=== PATIENT | female | born 1940 | race African-American/Black ===

== ENCOUNTER 2017-03-26 09:20 | Emergency (ER) | payer OTHER ==
[~2017-03-26] VITALS: Ht 180.3 cm; Wt 77.1 kg
[~2017-03-26 09:20] MED LIST: ANTIVERT25 MG PO; ARICEPT5 MG PO; CARDIZEM CD240 MG; CIPRO I.V.400 MG/201 IV; CIPRO500 MG PO; FLAGYL I.V500 MG/100 IV; FLAGYL500MG PO; GLUCOPHAGE XR500 MG; INTESTINEX1 CAP PO; MECLIZINE HCL25 MG PO; OSTERA TABLET1 EACH; PLAVIX75 MG PO; PREVACID30 MG PO; PRILOSEC20 MG; PROTONIX20 MG PO; PROTONIX40 MG PO; TARKA 1/2401 BOTTLE PO; ULTRACET PO
== END 2017-03-26 14:35 | disposition home or self-care (01) ==
LOC: ER 09:20
DX: M54.5 Low back pain (principal); M79.662 Pain in left lower leg

== ENCOUNTER 2017-08-12 17:08 | Emergency (ER) | payer OTHER ==
[~2017-08-12] VITALS: Ht 177.8 cm; Wt 77.1 kg
== END 2017-08-13 11:01 | disposition designated cancer center or children's hospital (05) ==
LOC: ER 17:08 → CPU-OBS 17:09 → ER 17:09
DX: I21.4 Non-ST elevation (NSTEMI) myocardial infarction (principal); I20.8 Other forms of angina pectoris; R07.89 Other chest pain

== ENCOUNTER 2017-12-02 09:33 | Emergency (ER) | payer OTHER ==
[~2017-12-02] VITALS: Ht 180.3 cm; Wt 98.9 kg
[2017-12-02] MEDS ORDERED: TOPROL XL25 M1 (09:42)
[2017-12-02] MEDS ORDERED: LIPITOR20 MG (09:42)
== END 2017-12-02 14:30 | disposition home or self-care (01) ==
LOC: ER 09:33
DX: M71.21 Synovial cyst of popliteal space [Baker], right knee (principal); M25.552 Pain in left hip; I87.2 Venous insufficiency (chronic) (peripheral)

== ENCOUNTER 2018-08-28 08:04 | Outpatient (CLI) | payer OTHER | END 2018-08-28 08:08 | disposition home or self-care (01) | LOC: RAD 08:04 → EDBD 08:04 → RAD 08:08 | DX: E78.89 Other lipoprotein metabolism disorders (principal); E55.9 Vitamin D deficiency, unspecified; E03.8 Other specified hypothyroidism; E66.8 Other obesity; M89.8X8 Other specified disorders of bone, other site; E11.51 Type 2 diabetes mellitus with diabetic peripheral angiopathy without gangrene; E11.9 Type 2 diabetes mellitus without complications; E11.42 Type 2 diabetes mellitus with diabetic polyneuropathy; G62.89 Other specified polyneuropathies; E11.65 Type 2 diabetes mellitus with hyperglycemia ==

== ENCOUNTER → 2018-08-28 | Outpatient (CLI) | payer OTHER ==
[~2018-08-28] MED LIST changes: +LIPITOR20 MG; +TOPROL XL25 M1
== END | disposition home or self-care (01) ==
LOC: LAB 09:02
DX: E03.8 Other specified hypothyroidism (principal); E78.89 Other lipoprotein metabolism disorders; E55.9 Vitamin D deficiency, unspecified; E66.8 Other obesity; M89.8X8 Other specified disorders of bone, other site; E11.51 Type 2 diabetes mellitus with diabetic peripheral angiopathy without gangrene; E11.9 Type 2 diabetes mellitus without complications; E11.42 Type 2 diabetes mellitus with diabetic polyneuropathy; G62.89 Other specified polyneuropathies; E11.65 Type 2 diabetes mellitus with hyperglycemia; Z79.4 Long term (current) use of insulin; M15.8 Other polyosteoarthritis; G30.9 Alzheimer's disease, unspecified; I49.8 Other specified cardiac arrhythmias; I10 Essential (primary) hypertension; I70.0 Atherosclerosis of aorta

== ENCOUNTER 2019-03-02 14:14 | Emergency (ER) | payer OTHER ==
[~2019-03-02] VITALS: Ht 180.3 cm; Wt 90.7 kg
== END 2019-03-02 16:07 | disposition home or self-care (01) ==
LOC: ER 14:14
DX: H66.92 Otitis media, unspecified, left ear (principal)

== ENCOUNTER 2019-04-25 10:33 | Outpatient (CLI) | payer OTHER | END 2019-04-25 11:12 | disposition home or self-care (01) | LOC: NUCLEAR 10:33 | DX: M89.8X0 Other specified disorders of bone, multiple sites (principal); E78.89 Other lipoprotein metabolism disorders; E55.9 Vitamin D deficiency, unspecified; E03.8 Other specified hypothyroidism; E66.8 Other obesity; E11.51 Type 2 diabetes mellitus with diabetic peripheral angiopathy without gangrene; E11.9 Type 2 diabetes mellitus without complications; E11.42 Type 2 diabetes mellitus with diabetic polyneuropathy; G62.89 Other specified polyneuropathies; E11.65 Type 2 diabetes mellitus with hyperglycemia; Z79.4 Long term (current) use of insulin ==

== ENCOUNTER 2019-04-25 11:36 | Outpatient (CLI) | payer OTHER | END 2019-04-25 11:48 | disposition home or self-care (01) | LOC: RAD 11:36 | DX: E78.89 Other lipoprotein metabolism disorders (principal); E55.9 Vitamin D deficiency, unspecified; E03.8 Other specified hypothyroidism; E66.8 Other obesity; M89.8X8 Other specified disorders of bone, other site; E11.51 Type 2 diabetes mellitus with diabetic peripheral angiopathy without gangrene; E11.42 Type 2 diabetes mellitus with diabetic polyneuropathy; G62.89 Other specified polyneuropathies; E11.65 Type 2 diabetes mellitus with hyperglycemia; Z79.4 Long term (current) use of insulin; M13.812 Other specified arthritis, left shoulder; M75.52 Bursitis of left shoulder ==

== ENCOUNTER → 2019-05-11 07:18 | Outpatient (CLI) | payer OTHER | END | disposition home or self-care (01) | LOC: LAB 07:18 | DX: E78.89 Other lipoprotein metabolism disorders (principal); E55.9 Vitamin D deficiency, unspecified; E03.8 Other specified hypothyroidism; E66.8 Other obesity; M89.8X8 Other specified disorders of bone, other site; E11.51 Type 2 diabetes mellitus with diabetic peripheral angiopathy without gangrene; E11.42 Type 2 diabetes mellitus with diabetic polyneuropathy; G62.89 Other specified polyneuropathies; E11.65 Type 2 diabetes mellitus with hyperglycemia; Z79.4 Long term (current) use of insulin; Z12.11 Encounter for screening for malignant neoplasm of colon; M15.8 Other polyosteoarthritis; G30.8 Other Alzheimer's disease; I49.8 Other specified cardiac arrhythmias; I10 Essential (primary) hypertension; I70.0 Atherosclerosis of aorta ==

== ENCOUNTER → 2020-02-28 10:31 | Outpatient (CLI) | payer OTHER | END | disposition home or self-care (01) | LOC: LAB 10:31 | PROVIDERS: ATTEND General Practice | DX: N39.0 Urinary tract infection, site not specified (principal) ==

== ENCOUNTER 2020-12-31 08:43 | Outpatient (CLI) | payer OTHER | END 2020-12-31 08:51 | disposition home or self-care (01) | LOC: RAD 08:43 | PROVIDERS: ATTEND Physical Medicine & Rehabilitation | DX: M17.0 Bilateral primary osteoarthritis of knee (principal) ==

== ENCOUNTER → 2021-02-25 | Emergency (ER) | payer OTHER ==
[~2021-02-25] VITALS: Ht 170.2 cm; Wt 113.4 kg
[~2021-02-25] MED LIST changes: +HYMOVIS24 MG/3 ML IU
== END | disposition designated cancer center or children's hospital (05) ==
LOC: ER 13:34
DX: I63.89 Other cerebral infarction (principal); Z20.822 Contact with and (suspected) exposure to COVID-19

== ENCOUNTER 2021-03-29 16:51 | Inpatient (IN) | payer OTHER ==
[~2021-03-29] VITALS: Ht 162.6 cm; Wt 124.7 kg
[2021-04-05] MEDS ORDERED: MEROPENEM1 GM IV (07:14)
== END 2021-04-05 13:46 | disposition home or self-care (01) | DRG 264 ==
LOC: ER 16:51 → MEDJ 22:36
PROVIDERS: ADMIT Internal Medicine; ATTEND Internal Medicine
PROC: 4A12X4Z Monitoring of Cardiac Electrical Activity, External Approach (ICD-10-PCS; 2021-03-30)
PROC: 0JB70ZZ Excision of Back Subcutaneous Tissue and Fascia, Open Approach (ICD-10-PCS; principal; 2021-04-03)
PROC: 02HV33Z Insertion of Infusion Device into Superior Vena Cava, Percutaneous Approach (ICD-10-PCS; 2021-04-03)
DX: I96 Gangrene, not elsewhere classified (principal); L89.154 Pressure ulcer of sacral region, stage 4; U07.1 COVID-19; I63.89 Other cerebral infarction; Z68.42 Body mass index [BMI] 45.0-49.9, adult; K57.32 Diverticulitis of large intestine without perforation or abscess without bleeding; L08.9 Local infection of the skin and subcutaneous tissue, unspecified; B96.4 Proteus (mirabilis) (morganii) as the cause of diseases classified elsewhere; B95.2 Enterococcus as the cause of diseases classified elsewhere; B96.29 Other Escherichia coli [E. coli] as the cause of diseases classified elsewhere; Z20.822 Contact with and (suspected) exposure to COVID-19; G30.8 Other Alzheimer's disease; F02.80 Dementia in other diseases classified elsewhere, unspecified severity, without behavioral disturbance, psychotic disturbance, mood disturbance, and anxiety; Z74.01 Bed confinement status; I11.0 Hypertensive heart disease with heart failure; I50.9 Heart failure, unspecified; E66.8 Other obesity

== ENCOUNTER 2021-04-15 12:31 | Emergency (ER) | payer OTHER ==
[~2021-04-15] VITALS: Ht 180.3 cm; Wt 124.7 kg
[~2021-04-15 12:31] MED LIST changes: +MEROPENEM1 GM IV
== END 2021-04-15 15:59 | disposition home or self-care (01) ==
LOC: ER 12:31
DX: T82.898A Other specified complication of vascular prosthetic devices, implants and grafts, initial encounter (principal); G30.8 Other Alzheimer's disease; F02.80 Dementia in other diseases classified elsewhere, unspecified severity, without behavioral disturbance, psychotic disturbance, mood disturbance, and anxiety

== ENCOUNTER 2021-05-17 18:36 | Inpatient (IN) | payer OTHER ==
[~2021-05-17] VITALS: Ht 180.3 cm; Wt 120.2 kg
[2021-05-17] MEDS ORDERED: PANTOPRAZOLE SO40 MG (19:23)
[2021-05-17] MEDS ORDERED: METOPROLOL SUCC25 MG (19:23)
[2021-05-17] MEDS ORDERED: LIPITOR40 M1 (19:24)
[2021-05-17] MEDS ORDERED: ARICEPT10 MG (19:24)
[2021-05-17] MEDS ORDERED: TRAZODONE HCL50 MG (19:24)
[2021-05-17] MEDS ORDERED: CHILDREN'S ASPI81 MG (19:24)
[2021-05-20] MEDS ORDERED: ALENDRONATE SOD70 MG (10:20)
== END 2021-06-29 12:55 | disposition home or self-care (01) | DRG 463 ==
LOC: ER 18:36 → MEDI 05-18 09:18 → MEDJ 05-18 09:18
PROVIDERS: ADMIT Internal Medicine; ATTEND Internal Medicine
PROC: 0QB10ZZ Excision of Sacrum, Open Approach (ICD-10-PCS; 2021-05-18)
PROC: 30243N0 Transfusion of Autologous Red Blood Cells into Central Vein, Percutaneous Approach (ICD-10-PCS; 2021-05-18)
PROC: 4A12X4Z Monitoring of Cardiac Electrical Activity, External Approach (ICD-10-PCS; 2021-05-18)
PROC: 0JBR0ZZ Excision of Left Foot Subcutaneous Tissue and Fascia, Open Approach (ICD-10-PCS; principal; 2021-05-25)
PROC: 0JD70ZZ Extraction of Back Subcutaneous Tissue and Fascia, Open Approach (ICD-10-PCS; 2021-05-25)
PROC: 0JD70ZZ Extraction of Back Subcutaneous Tissue and Fascia, Open Approach (ICD-10-PCS; 2021-06-05)
PROC: 0JBR0ZZ Excision of Left Foot Subcutaneous Tissue and Fascia, Open Approach (ICD-10-PCS; 2021-06-05)
PROC: 0JBM0ZZ Excision of Left Upper Leg Subcutaneous Tissue and Fascia, Open Approach (ICD-10-PCS; 2021-06-05)
PROC: 0JBQ0ZZ Excision of Right Foot Subcutaneous Tissue and Fascia, Open Approach (ICD-10-PCS; 2021-06-05)
PROC: 0JD70ZZ Extraction of Back Subcutaneous Tissue and Fascia, Open Approach (ICD-10-PCS; 2021-06-12)
PROC: 0JDR0ZZ Extraction of Left Foot Subcutaneous Tissue and Fascia, Open Approach (ICD-10-PCS; 2021-06-12)
PROC: 0JDM0ZZ Extraction of Left Upper Leg Subcutaneous Tissue and Fascia, Open Approach (ICD-10-PCS; 2021-06-12)
PROC: 0JDQ0ZZ Extraction of Right Foot Subcutaneous Tissue and Fascia, Open Approach (ICD-10-PCS; 2021-06-12)
PROC: 0LBL0ZZ Excision of Right Upper Leg Tendon, Open Approach (ICD-10-PCS; 2021-06-19)
DX: M46.28 Osteomyelitis of vertebra, sacral and sacrococcygeal region (principal); L89.154 Pressure ulcer of sacral region, stage 4; L89.623 Pressure ulcer of left heel, stage 3; E11.52 Type 2 diabetes mellitus with diabetic peripheral angiopathy with gangrene; N39.0 Urinary tract infection, site not specified; N17.8 Other acute kidney failure; I50.30 Unspecified diastolic (congestive) heart failure; E11.69 Type 2 diabetes mellitus with other specified complication; E11.649 Type 2 diabetes mellitus with hypoglycemia without coma; L89.890 Pressure ulcer of other site, unstageable; L89.212 Pressure ulcer of right hip, stage 2; R13.19 Other dysphagia; Z95.828 Presence of other vascular implants and grafts; Z74.01 Bed confinement status; I11.0 Hypertensive heart disease with heart failure; I25.10 Atherosclerotic heart disease of native coronary artery without angina pectoris; G30.9 Alzheimer's disease, unspecified; F02.80 Dementia in other diseases classified elsewhere, unspecified severity, without behavioral disturbance, psychotic disturbance, mood disturbance, and anxiety; D64.9 Anemia, unspecified; E86.0 Dehydration; B96.20 Unspecified Escherichia coli [E. coli] as the cause of diseases classified elsewhere; B96.4 Proteus (mirabilis) (morganii) as the cause of diseases classified elsewhere; B96.5 Pseudomonas (aeruginosa) (mallei) (pseudomallei) as the cause of diseases classified elsewhere; B96.1 Klebsiella pneumoniae [K. pneumoniae] as the cause of diseases classified elsewhere; B96.6 Bacteroides fragilis [B. fragilis] as the cause of diseases classified elsewhere; Z86.16 Personal history of COVID-19; Z86.73 Personal history of transient ischemic attack (TIA), and cerebral infarction without residual deficits

== ENCOUNTER 2021-06-30 18:53 | Emergency (ER) | payer OTHER ==
[~2021-06-30] VITALS: Ht 180.3 cm; Wt 72.6 kg
[~2021-06-30 18:53] MED LIST changes: +ALENDRONATE SOD70 MG; +ARICEPT10 MG; +CHILDREN'S ASPI81 MG; +LIPITOR40 M1; +METOPROLOL SUCC25 MG; +PANTOPRAZOLE SO40 MG; +TRAZODONE HCL50 MG
== END 2021-07-03 16:01 | disposition other institution (70) ==
LOC: ER 18:53 → MEDJ 07-02 07:52 → ER 07-03 16:01
DX: D64.9 Anemia, unspecified (principal); E11.65 Type 2 diabetes mellitus with hyperglycemia; R29.818 Other symptoms and signs involving the nervous system; I95.9 Hypotension, unspecified; M86.9 Osteomyelitis, unspecified; G30.9 Alzheimer's disease, unspecified; F02.80 Dementia in other diseases classified elsewhere, unspecified severity, without behavioral disturbance, psychotic disturbance, mood disturbance, and anxiety; L89.154 Pressure ulcer of sacral region, stage 4; K52.89 Other specified noninfective gastroenteritis and colitis; B34.8 Other viral infections of unspecified site; B95.7 Other staphylococcus as the cause of diseases classified elsewhere; Z79.84 Long term (current) use of oral hypoglycemic drugs; Z74.01 Bed confinement status

== ENCOUNTER 2021-07-08 13:46 | Emergency (ER) | payer OTHER ==
[~2021-07-08] VITALS: Ht 175.3 cm; Wt 70.8 kg
== END 2021-07-08 15:10 | disposition home or self-care (01) ==
LOC: ER 13:46
DX: Z53.21 Procedure and treatment not carried out due to patient leaving prior to being seen by health care provider (principal)